=== PATIENT | male | born 1960 | race Caucasian/White ===

== ENCOUNTER → 2017-06-05 15:23 | Outpatient (CLI) | payer BC ==
[2015-09-12 13:27] VITALS: BMI 36.2
[~2017-06-05 15:23] MED LIST: ACETAMINOPHEN325 MG PO; ACTOS15 MG PO; FISH OIL 1,2001 CAP PO; GLIMEPIRIDE2 MG PO; GLUCOPHAGE1000 MG PO; LODINE400 MG PO; NEURONTIN 400400 MG PO; PRAVACHOL20 MG PO; ZANAFLEX2 M1 PO; ZANTAC150 MG PO
== END | disposition home or self-care (01) ==
LOC: D.CT 15:23
DX: M54.12 Radiculopathy, cervical region (principal)

== ENCOUNTER → 2018-09-25 12:58 | Outpatient (CLI) | payer BC ==
[2015-09-12 13:27] VITALS: BMI 36.2
== END | disposition home or self-care (01) ==
LOC: D.HCCARDIO 09-01 09:30
PROVIDERS: ATTEND Internal Medicine Cardiovascular Disease
DX: I10 Essential (primary) hypertension (principal)

== ENCOUNTER 2019-07-14 11:04 | Outpatient (CLI) | payer BC ==
[~2019-07-14] VITALS: Ht 175.3 cm; Wt 109.1 kg
--- NOTE | ~2019-07-14 | HEMODYNAMI ---
PATIENT:CHAO SURESH MEDICAL RECORD: [id number] : 62 LOCATION:D.CAT ADMISSION DATE: 07/14/19 Generatedon:07/14/201913:59 Patient name: CHAO SURESH Patient #: [id number] SSN: : 1960 Date of study: 07/14/2019 Page: Of Hemodynamic Procedure Report Patient Data Patient Demographics Procedure consent was obtained First Name: CHAO Gender: Male Last Name: DEMETRICE : 1960 Middle Initial: B Age: 59 year(s) Patient #: [id number] Race: Unknown Additional ID: [id number] Contact details [address]: [address] [place] [address] State: [place] City: [place] Zip code: [address] Past Medical History History of disease Date Diagnosis Comments CAD Allergies Allergen Reaction Date Comments Reported Sulfa drugs 09/12/2015 Codeine 09/12/2015 Other allergy 09/12/2015 LEVOFLOXACIN Other allergy 07/14/2019 HYDROCODONE, LEVOFLOXACIN, STATINS, SULFA Admission Admission Data Admission Date: 07/14/2019 Admission Time: 11:04 Arrival Date: 07/14/2019 Arrival Time: 0:00 Height (in.): 68.9 BSA: 2.23 (m2) Height (cm.): 175 BMI: 35.59 (kg/m2) Weight (lbs.): 240.31 Weight (kg.): 109 Lab Results Lab Result Date: 07/14/2019 Lab Result Time: 0:00 Biochemistry Name Units Result Min Max BUN mg/dl 13 --(--*-)-- 7 18 Creatinine mg/dl 0.9 --(-*--)-- 0.6 1.3 CBC Name Units Result Min Max Hematocrit % 47.1 --(-*--)-- 42 54 Hemoglobin g/dl 15.5 --(-*--)-- 13.5 17.5 Procedure Procedure Types Cath Procedure Diagnostic Procedure PPM/ICD Internal Cardiac Defib. Exchange Sedation Charges Moderate Sedation up to 15 minutes Procedure Description Procedure Date Procedure Date: 07/14/2019 Procedure Start Time: 13:37 Procedure End Time: 13:57 Procedure Staff Name Function Andres Sparks MD Performing Physician Henry Hernandez MD Assisting physician Dmitri Temple RN Nurse Jennifer Maria RT Monitor Beatris Marsh RT Scrub Procedure Data Cath Procedure Fluoroscopy Diagnostic fluoroscopy Total fluoroscopy Time: 0 time: 0 min min Diagnostic fluoroscopy Total fluoroscopy dose: 0 dose: 0 mGy mGy Estimated blood loss: 5 ml Procedure Complications No complications Procedure Medications Medication Administration Route Dosage Ancef (1Gm/50ml NS) I.V.P.B 1 g Ancef Irrigation Topical 1 g (1gm/500ml NS) Fentanyl I.V. 50 mcg Versed I.V. 1 mg Fentanyl I.V. 50 mcg Versed I.V. 1 mg Lidocaine 1% added to field 20 Hemodynamics Rest BSA: 2.23 (m2) HGB: 15.5 (g/dl) O2 Consumption: Estimated: 272.91 (ml/min) O2 Co nsumption indexed: Estimated:122.38 (ml/min/m) Heart Rate: 82 (bpm) Snapshots Pre Cath Intra NCS Post Cath Vital Signs Time Heart Resp SPO2 etCO2 NIBP (mmHg) Rhythm Pain Sedation Rate (ipm) (%) (mmHg) Status Level (bpm) 13:27:14 72 17 96 0 130/82(101) NSR (Missing) 10(A) 13:31:21 81 16 96 0 132/79(105) NSR (Missing) 10(A) 13:35:29 83 17 96 0 131/77(97) NSR (Missing) 10(A) 13:39:35 84 16 94 0 121/83(100) NSR (Missing) 9(A) 13:43:41 81 16 94 0 127/71(95) NSR (Missing) 9(A) 13:47:46 81 16 95 0 122/78(99) NSR (Missing) 9(A) 13:51:50 82 17 96 0 138/80(99) NSR (Missing) 9(A) 13:56:00 81 9 96 0 121/79(105) NSR (Missing) 9(A) Medications Time Medication Route Dose Verified Delivered Reason Notes Effecti veness by by 13:30:37 Lidocaine added 20ml Henry Rizvi for local 1% to vial Luis Enrique Temple RN anesthetic field x 2 13:30:58 Ancef I.V.P.B 1 g Scientologist Dmitri Per (1Gm/50ml Luis Enrique Temple RN physician NS) 13:31:21 Ancef Topical 1 g Scientologist Dmitri used for Irrigation Luis Enrique Temple die maker electronic (1gm/500ml NS) 13:35:30 Fentanyl I.V. 50 Henry Rizvi for mcg Luis Enrique Temple RN sedation 13:35:37 Versed I.V. 1 mg Henry Browny for Luis Enrique Temple RN sedation 13:37:28 Fentanyl I.V. 50 Scientologist Dmitri for mcg Luis Enrique Temple RN sedation 13:37:33 Versed I.V. 1 mg Henry Rizvi for Luis Enrique Temple RN sedation Procedure Log Time Note 13:07:45 Informed consent obtained and on chart 13:08:19 Procedure Status Elective Heart Cath (OP). 13:08:20 Time tracking: Regular hours (M-F 7:00 - 5:00) 13:08:23 Plan of Care:Hemodynamics will remain stable., Cardiac rhythm will remain stable., Comfort level will be maintained., Respiratory function will remain adequate., Patient/ family verbilizes understanding of procedure., Procedure tolerated without complication., Recovers from procedure without complications.. 13:08:[address] Medtronic Evera MRI [address]T DR Simmons ICD [id number] opened to sterile field. 13:09:15 Dmitri Temple RN sent for patient. Start room use. 13:09:42 H&P Date Dictated: 07/06/2019 Within 30 days and on chart., H&P Addendum completed by physician on day of procedure. (MUST COMPLETE FOR ALL OUTPATIENTS). 13:11:15 Patient allergic to Other allergyHYDROCODONE, LEVOFLOXACIN, STATINS, SULFA 13:11:44 Lab Result : BUN 13 mg/dl 13::44 Lab Result : Creatinine 0.9 mg/dl 13:11:44 Lab Result : Hemoglobin 15.5 g/dl 13:11:44 Lab Result : Hematocrit 47.1 % 13:11:55 Patient Weight : 240.31 lbs 13:11:59 Patient Height : 68.9 inches 13:12:04 Arrival Date: 07/14/2019 12:00:00 AM 13:12:34 Patient received from Pre/Post Procedure Room to CCL 3 Alert and oriented. Tansferred to table in Supine position. 13:12:36 Warm blankets applied, and sandra hugger turned on for patient comfort. 13:12:38 Correct patient and procedure confirmed by team. 13:26:01 ECG and BP/O2 sat monitors applied to patient. 13:26:01 Vital chart was started 13:26:03 Baseline sample Acquired. 13:26:07 Rhythm: sinus rhythm 13::09 Full Disclosure recording started 13:26:09 Pre-procedure instructions explained to patient. 13:26:10 Pre-op teaching completed and patient verbalized understanding. 13:26:11 Family in patients room. 13:26:12 Patient NPO since Midnight. 13:26:14 Is the patient allergic to Iodine/contrast media? No. 13:26:15 Is patient on blood thinner?No 13:26:16 Patient diabetic? Yes. 13:26:17 If diabetic: On Metformin? Yes 13:26:19 If on Metformin: Last Dose? 07/13/2019 13:26:23 Previous problem with sedation/anesthesia? No ? 13:26:24 Snore? Yes 13:26:26 Sleep apnea? No 13:26:27 Deviated septum? No 13:26:29 Opens mouth fully? Yes 13:26:30 Sticks out tongue? Yes 13:26:32 Airway obstruction? No ? 13:26:33 Dentures? No ? 13:26:37 Patient pain scale 0/10 ?. 13:26:42 IV patent on arrival in left forearm with 0.9% NaCl at [facility]. 13:26:44 Lab results completed and on chart. 13:27:06 Left chest area was prepped with chlora-prep and draped in sterile fashion 13:27:07 Alarms reviewed by R. N. 13:27:07 Sharps counted by scrub and verified by R.N. 13:27:18 Medtronic desk representative YOSEF WEBSTER present for procedure. 13:27:28 Pre sharps counted by scrub and verified by RN: Sutures: 7; Sponges: 5; Stick needles: 2; Skin needles: 0; Blade: 1; Cautery: 1 13:27:30 Grounding pad site Left thigh. 13:27:31 Grounding pad site free from injury. 13:27:39 Use device set LUIS ENRIQUE PPM 13:27:40 2-0 Ticron Multipack ([id number]) opened to sterile field. 13:27:40 3-0 Vicryl Single Pack [id number] opened to sterile field. 13:27:40 5-0 Monocryl PS2 [id number] opened to sterile field. 13:27:41 Cautery Tip Assembler Latches [employer] opened to sterile field. 13:27:41 Cautery Pushbutton Pencil opened to sterile field. 13:27:42 Mepilex Dressing ([id number]) opened to sterile field. 13:30:37 Lidocaine 1% 20ml vial x 2 added to field was administered by Dmitri Temple RN; for local anesthetic; Verbal order read back and verified. 13:30:58 Ancef (1Gm/50ml NS) 1 g I.V.P.B was administered by Dmitri Temple RN; Per physician; Verbal order read back and verified. 13:31:21 Ancef Irrigation (1gm/500ml NS) 1 g Topical was administered by Dmitri Temple RN; used for procedure; Verbal order read back and verified. 13:33:43 --------ALL STOP TIME OUT------ 13:33:43 Final Timeout: patient, procedure, and site verified with staff and physician. All members of the team are in agreement. 13:33:48 Left chest site verified by team. 13:33:52 Fire Safety Assessment: A--An alcohol-based skin anteseptic being used preoperatively., B--The operative or invasive procedure is being performed above the xiphoid process or in the oropharynx., C--Open oxygen or nitrous oxide is being used. 13:33:57 Physical assessment completed. ASA score P 2 - A patient with mild systemic disease as per Henry Hernandez MD. 13:34:01 Sedation plan: IV Moderate Sedation Medication:Versed, Fentanyl 13:35:30 Fentanyl 50 mcg I.V. was administered by Dmitri Temple RN; for sedation; Verbal order read back and verified. 13:35:37 Versed 1 mg I.V. was administered by Dmitri Temple RN; for sedation; Verbal order read back and verified. 13:36:40 Procedure started. 13:37:11 Lidocaine 1% was administered to left subclavicular area by Henry Hernandez MD . 13:37:28 Fentanyl 50 mcg I.V. was administered by Dmitri Temple RN; for sedation; Verbal order read back and verified. 13:37:33 Versed 1 mg I.V. was administered by Dmitri Temple RN; for sedation; Verbal order read back and verified. 13:40:26 Incision made to left subclavicular area. 13:42:52 Generator pocket made/opened. 13:43:49 AICD was removed.. 13:44:48 AICD was attached to lead(s) and inserted into pocket. 13:44:55 Device pocket was irrigated with Ancef. 13:46:06 Generator was sutured in place with 2-0 ticron. 13:48:16 Subcutaneous closure was completed with 3-0 vicryl. 13:51:13 Skin closure was completed with 5-0 monocryl. 13:51:24 Procedure ended.(Physican Out) 13:51:52 Post sharps counted by scrub and verified by RN: Sutures: 7; Sponges: 5; Stick needles: 2; Skin needles: 0; Blade: 1; Cautery: 1 13:51:59 Fluoroscopy time 00.00 minutes. 13:52:00 Flurop Dose total: 0 13:52:00 Fluoroscopy dose: 0 mGy 13:52:02 Dose Area Product 0 mGy/cm. 13:52:04 Sharps counted by scrub and verified by R.N. 13:52:16 Post-op/insertion site Left Chest area dressed using a Mepilex dressing. 13:52:35 Post-procedure physical assessment completed. ASA score P 2 - A patient with mild systemic disease as per Andres Sparks MD. 13:52:46 Post procedure rhythm: sinus rhythm 13:52:52 Estimated blood loss: 5 ml 13:53:04 Post procedure instruction explained to patient.Patient verbalizes understanding. 13:53:05 Patient needs reinforcement of post procedure teaching. 13:53:34 Parameters-- Generator: Mode: AAIR\ DDDR. Lower Rate: 60bpm. Upper Rate: 130bpm. 13:55:10 Procedure type changed to Cath procedure, Diagnostic procedure, PPM/ICD, Internal Cardiac Defib. Exchange, Sedation Charges, Moderate Sedation up to 15 minutes 13:55:41 Procedure and supply charges have been captured, reviewed, submitted and are correct. 13:55:45 Procedure Complication : No complications 13:55:47 Vital chart was stopped 13:55:49 Operative report dictated upon procedure completion. 13:55:49 See physician's report for complete and final results. 13:55:51 Report given to Pre/Post Procedure Room. 13:55:54 Patient transfered to Pre/Post Procedure Room with Bed. 13:57:55 Procedure ended. 13:57:55 Full Disclosure recording stopped 13:57:58 End room use (Document Last) 13:58:13 End room use (Document Last) 13:59:07 End room use (Document Last) Device Usage Item Name Manufacture Quantity Catalog Hospital Part Current Minimal Lot# / Number Charge Number Stock Stock Serial# Code Medtronic Medtronic 1 [id number] [address] Simmons ICD [id number] 2-0 Ticron Ethicon 0 [id number] [id number] [id number] 5 Multipack ([id number]) 3-0 Vicryl Ethicon 1 [id number] 5 Single Pack [id number] 5-0 Monocryl Ethicon 1 [id number] 594660 144007 567149 5 PS2 Y495G Cautery Tip Microtek 1 [id number] [id number] 328592 5 Assembler [employer] Cautery Microtek 1 [id number] 690442 76617 834315 5 Pushbutton [employer] Pencil Mepilex Cardinal 1 [id number] [id number] [id number] [id number] 5 D[employer] ([id number]) Signature Audit [place] Stage Time Signature Unsigned Intra-Procedure 07/14/2019 Jennifer Maria 1:58:13 PM RT(R) Intra-Procedure 07/14/2019 Dmitri Temple 1:59:07 PM RN Intra-Procedure 07/14/2019 Andres Gomez 1:59:28 PM Wilberto GALDAMEZ [place] [id number] [place] [id number]
--- NOTE | ~2019-07-14 | OP ---
PATIENT NAME: CHAO SURESH MEDICAL RECORD: [id number] :62 LOCATION:D.CAT ADMISSION DATE: SURGEON: RADHA DUDLEY MD DATE OF OPERATION: 07/14/2019 PREOPERATIVE DIAGNOSES: 1. End-of-life AICD generator. 2. Hypertension. POSTOPERATIVE DIAGNOSES: 1. End-of-life AICD generator. 2. Hypertension. PROCEDURE: Dual lead AICD generator exchange. SURGEON: Radha Dudley MD REPORT OF PROCEDURE: The patient's left chest was prepped and draped in sterile fashion. A 20 mL of 1% lidocaine with epinephrine was infused into the surrounding tissues. A transverse incision was made on the left superior lateral chest and a subcutaneous pouch was encountered holding the AICD generator. The generator was eviscerated through the wound. The 2 leads were taken off of the generator and a new generator was affixed to the leads. This generator appear to be functioning appropriately. This was placed into the subcutaneous pouch. We irrigated out the wound with antibiotic solution and then closed the subcutaneous tissues with interrupted 3-0 Vicryl. The skin was closed with running subcutaneous 5-0 Monocryl and dressed appropriately. COMPLICATIONS: None. CONDITION: Stable. ANESTHESIA: Local MAC. BLOOD LOSS: Minimal. TRANSINT:[id number] Voice Confirmation ID: [id number] DOCUMENT ID: [id number] RADHA DUDLEY MD CC: JAYASHREE SCALES MD [id number] DICTATION DATE: 07/14/19 1353 MONUMENTAL STONEMASON: 07/14/19 1837 DEP CLI 07/14/19 [place] [id number] [place] [id number]
[2019-07-14] MEDS ORDERED: TESTOST CYP INJ 200 INJ (11:26)
[2019-07-14] MEDS ORDERED: REVATIO20 MG PO (11:27)
[2019-07-14] MEDS ORDERED: CARTIA XT120 MG PO (11:28)
[2019-07-14] MEDS ORDERED: FUROSEMIDE20 MG PO (11:29)
[2019-07-14] MEDS ORDERED: ASPIRIN81 MG PO (11:30)
[2019-07-14] MEDS ORDERED: TRAVOPROST EACH EYE (11:30)
[2019-07-14] MEDS ORDERED: COZAAR100 MG PO (11:31)
[2019-07-14] MEDS ORDERED: PRAVACHOL40 MG PO (11:31)
[2019-07-14] MEDS ORDERED: LODINE500 MG PO (11:32)
[2019-07-14] MEDS ORDERED: NEURONTIN 300300 MG PO (11:33)
[2019-07-14] MEDS ORDERED: KRILL OIL 1,001 EAC1 PO (11:33)
[2019-07-14] MEDS ORDERED: ULTRAM50 MG PO (11:34)
[2019-07-14] MEDS ORDERED: PIOGLITAZONE15 MG PO (11:34)
[2019-07-14] MEDS ORDERED: FARXIGA10 MG PO (11:35)
[2019-07-14] MEDS ORDERED: PEPCID AC20 MG PO (11:36)
[2019-07-14 11:40] VITALS: BP 129/84; Ht 175.3 cm; Wt 109.1 kg
[2019-07-14 11:51] LABS: HEMATOCRIT 47.1 % (42.0-54.0); HEMOGLOBIN 15.5 g/dL (13.5-17.5); MCH 26.9 pg (26.0-34.0); MCHC 32.9 g/dL (31.0-37.0); MCV 81.8 fL (80.0-100.0); MEAN PLATELET VOLUME 9.8 fL (7.4-10.4); RBC 5.76 10x6/uL (4.20-6.10); RDW 16.9 % (11.5-14.5); WBC 9.1 10x3/uL (4.8-10.8)
[2019-07-14 12:01] LABS: CALC OSMOLALITY 277 mosm/kg (275-300); CALCIUM 9.5 mg/dL (8.5-10.1); CARBON DIOXIDE 25.4 mmol/L (21.0-32.0); CHLORIDE - SERUM 102 mmol/L (98-107); CREATININE - SERUM 0.9 mg/dL (0.6-1.3); GLUCOSE 173 mg/dL (74-106); POTASSIUM - SERUM 4.4 mmol/L (3.5-5.1); SODIUM 137 mmol/L (136-145); UREA NITROGEN 13 mg/dL (7-18); eGFR NON AFRICAN AMERICAN > 90 mL/min (90-120)
[2019-07-14 12:03] LABS: APTT 27.9 SECONDS (22.8-39.4); INR 0.98 (0.85-1.17); PROTIME 12.9 SECONDS (11.6-15.0)
--- NOTE | 2019-07-14 14:07 | NUR ---
PT ARRIVED BY STRETCHER. PLACED ON MONITORS. ASSESSMENT COMPLETED. VSS. FAMILY AT BEDSIDE. DR. DUDLEY SPOKE WITH PT'S FAMILY AND UPDATED THEM ON PT'S STATUS.
--- NOTE | 2019-07-14 14:22 | NUR ---
PT RESTING COMFORTABLY. VSS. LEFT UPPER CHEST DRESSING C/D/I NO S/S OF HEMATOMA NOTED. CALL LIGHT WITHIN REACH
--- NOTE | 2019-07-14 14:50 | NUR ---
PT MORE ALERT. SET UP AND GIVEN DRINK. DENIES NAUSEA/PAIN AT THIS TIME. FAMILY AT BEDSIDE. VSS. LEFT UPPER CHEST DRESSING C/D/I. NO S/S OF HEMATOMA NOTED.
--- NOTE | 2019-07-14 15:10 | NUR ---
DISCUSSED DISCHARGE INSTRUCTIONS WITH PT AND PT'S FAMILY. THEY VOICED UNDERSTANDING. LEFT UPPER CHEST DRESSING C/D/I. NO S/S OF HEMATOMA NOTED. PIV D/C'D WITH CATH TIP INTACT. TOLERATED WELL. PT INSTRUCTED TO GET UP AND DRESSED. FAMILY AT BEDSIDE TO ASSIST.
--- NOTE | 2019-07-14 15:15 | NUR ---
PT AMBULATED TO RESTROOM. VOIDED WITHOUT DIFFICUTLY. TAKEN TO VEHICLE BY WHEELCHAIR. NO S/S OF DISTRESS NOTED. ALL BELONGINGS AND PAPERWORK IN HAND.
== END 2019-07-14 15:15 | disposition home or self-care (01) ==
LOC: D.CATH 11:04
PROVIDERS: ATTEND Internal Medicine Interventional Cardiology
DX: T82.111A Breakdown (mechanical) of cardiac pulse generator (battery), initial encounter (principal); I10 Essential (primary) hypertension; R00.0 Tachycardia, unspecified; Z95.810 Presence of automatic (implantable) cardiac defibrillator; E11.9 Type 2 diabetes mellitus without complications; E78.5 Hyperlipidemia, unspecified; I20.9 Angina pectoris, unspecified

== ENCOUNTER → 2020-02-09 08:55 | Outpatient (CLI) | payer BC ==
[2019-07-14 11:40] VITALS: BMI 35.5
[~2020-02-09 08:55] MED LIST changes: +ASPIRIN81 MG PO; +CARTIA XT120 MG PO; +COZAAR100 MG PO; +FARXIGA10 MG PO; +FUROSEMIDE20 MG PO; +KRILL OIL 1,001 EAC1 PO; +LODINE500 MG PO; +NEURONTIN 300300 MG PO; +PEPCID AC20 MG PO; +PIOGLITAZONE15 MG PO; +PRAVACHOL40 MG PO; +REVATIO20 MG PO; +TESTOST CYP INJ 200 INJ; +TRAVOPROST EACH EYE; +ULTRAM50 MG PO
== END | disposition home or self-care (01) ==
LOC: D.MRI 08:55
PROVIDERS: ATTEND Neurological Surgery
DX: M54.12 Radiculopathy, cervical region (principal)